=== PATIENT | male | born 1960 | race Two or more races ===

== ENCOUNTER 2023-04-13 11:00 | Day surgery (SDC) | payer OTHER ==
[2023-04-08 10:31] LABS: HEMATOCRIT 48.2 % (39.0-48.0); HEMOGLOBIN 16.6 g/dL (13-16.00); MEAN CELL VOLUME 86.9 fL (80.0-100.00); MEAN CORPUSCULAR HGB CONC 34.6 g/dl (32.0-36.0); PLATELET COUNT 214 K/uL (150-450); RED BLOOD COUNT 5.54 M/uL (4.00-6.00); RED CELL DISTRIBUTION WIDTH 13.2 % (11.5-14.5)
[2023-04-08 10:43] LABS: URINE APPEARANCE Clear; URINE BILIRRUBIN Negative (NEGATIVE); URINE BLOOD Negative; URINE COLOR Yellow; URINE GLUCOSE Negative (NEGATIVE); URINE LEUKOCYTE Negative; URINE NITRATE Negative; URINE PROTEIN Negative (NEGATIVE); URINE UROBILINOGEN 0.2 E.U./dl
[2023-04-08 10:50] LABS: URINE BACTERIA 2.5 uL (0.0-1933); URINE EPITHELIAL CELLS 0.4 uL (0.0-38.8); URINE WBC 0.6 uL (0.0-23.2)
[2023-04-08 10:56] LABS: CALCIUM 9.3 mg/dL (8.5-10.1); CREATININE SERUM 1.11 mg/dL (0.70-1.30); GFR 67.12; POTASSIUM 4.04 mEq/L (3.5-5.1)
[2023-04-08 11:03] LABS: INR 1.04; PARTIAL THROMBOPLASTIN TIME 27.1 SECONDS (22.0-34.0); PROTHROMBIN TIME 10.9 SECONDS (9.0-11.5)
[~2023-04-13] VITALS: Ht 175.3 cm; Wt 91.2 kg
[~2023-04-13 11:00] MED LIST: ACID CONTROLLER20 MG PO; LANSOPRAZOLE15 MG PO; MULTIVI PO; TAMS0.4C PO; VALSARTAN-HCTZ1 EAC3 PO
[2023-04-13] MEDS ORDERED: PERCOCET 5-3251 EACH PO (19:40)
== END 2023-04-13 22:40 | disposition home or self-care (01) ==
LOC: CIR.AMB 11:00
PROVIDERS: ATTEND Surgery
DX: N52.01 Erectile dysfunction due to arterial insufficiency (principal); N48.6 Induration penis plastica; Z20.822 Contact with and (suspected) exposure to COVID-19; Z88.6 Allergy status to analgesic agent; I10 Essential (primary) hypertension
CPT/HCPCS: 54405; 54112; 54360; C1813